=== PATIENT | male | born 2000 | race Caucasian/White ===

== ENCOUNTER 2019-08-15 22:31 | Emergency (ER) | payer MEDICAID, OTHER ==
[~2019-08-15] VITALS: Ht 170.2 cm; Wt 57.6 kg
--- NOTE | 2019-08-15 22:40 | NUR ---
bibs for c/o cough and SOB x 3 days. w/ pmh of asthma. holding o2 sat of 97-98% on r/a. placed on a monitor,
[2019-08-15] MEDS ORDERED: ALBUTEROL FS 2.5 MG/3 ML VIAL.NEB ONE (22:47)
[2019-08-15] MEDS ORDERED: IPRATROPIUM NEB FS 0.5 MG/2.5 ML AMPUL.NEB ONE (22:47)
[2019-08-15] MEDS ORDERED: predniSONE 20 MG TABLET ONE (22:47)
[2019-08-15] MEDS ORDERED: predniSONE 20 MG TABLET PO ONE (23:00)
[2019-08-15] MEDS ORDERED: IPRATROPIUM NEB FS 0.5 MG/2.5 ML AMPUL.NEB NEB ONE (23:00)
[2019-08-15] MEDS ORDERED: ALBUTEROL FS 2.5 MG/3 ML VIAL.NEB NEB ONE (23:00)
--- NOTE | 2019-08-15 23:08 | NUR ---
x.ray tech at the bed side
--- NOTE | 2019-08-15 23:11 | NUR ---
pt done w/ breathing tx reported feeling much better. satting 99% on r/a, will cont to monitor,
--- NOTE | 2019-08-15 23:45 | NUR ---
Patient discharged to home in stable condition. Rx and Written and verbal after care instructions given. Patient verbalizes understanding of instruction.
[2019-08-15 23:50] VITALS: BP 127/66
== END 2019-08-15 23:45 | disposition home or self-care (01) ==
LOC: ER 22:37
DX: J20.9 Acute bronchitis, unspecified (principal); J45.909 Unspecified asthma, uncomplicated; F17.200 Nicotine dependence, unspecified, uncomplicated; Z88.0 Allergy status to penicillin
CPT/HCPCS: 71045; 94640; 99283; J7512